=== PATIENT | male | born 1965 | race Caucasian/White ===

== ENCOUNTER 2016-06-19 18:52 | Emergency (ER) | payer SELFPAY ==
[~2016-06-19] VITALS: Ht 190.5 cm; Wt 124.5 kg
[~2016-06-19 18:52] MED LIST: ERYTOIN10 RIGHT EYE
[2016-06-19 19:01] VITALS: BP 155/104; PULSE 70; RESP 18; TEMP 98.8; O2SAT 97
[2016-06-19] MEDS ORDERED: KETOROLAC TROMETHAMINE 60 MG/2 ML (IM) VIAL IM ONE (20:00)
[2016-06-19] MEDS ORDERED: ACETAMINOPHEN/HYDROcodone 325 MG/5 MG TAB PO ONE (20:00)
--- NOTE | 2016-06-19 20:06 | PD ---
HPI Chief Complaint: Musculoskeletal Complaint Time Seen by Provider: 20:00 Travel History International Travel<30 days: No Contact w/Intl Traveler<30days: No Traveled to known affect area: No History of Present Illness HPI 51-year-old right-hand dominant male presents to the ED for evaluation of 8/10 right shoulder pain. Onset 3 days ago after he fell approximately 3 feet into a friend's empty pool. He states that he iced the shoulder immediately after the injury. Today he complains of anterior shoulder pain, worse with range of motion. He states that he is unable to raise the arm above shoulder level. He denies numbness, tingling, weakness of the extremity. He denies previous injury to the same shoulder, chronic health problems. Takes no daily medications , NKDA. PFSH Past Medical History Medical History: Denies Significant Hx Diminished Hearing: No Immunizations Current: Yes Tetanus Vaccination: < 5 Years Influenza Vaccination: No ?: Not Social History Alcohol Use: Yes (DAILY) Tobacco Use: No Substance Use: No Allergies-Medications (Allergen,Severity, Reaction): Coded Allergies: No Known Allergies (Verified , 02/16/16) Reported Meds & Prescriptions Reported Meds & Active Scripts Active Ibuprofen 800 Mg Tab 800 Mg PO Q8H Review of Systems Except as stated in HPI: all other systems reviewed are Neg Physical Exam Narrative GENERAL: Well-nourished, well-developed white male in no acute distress. SKIN: Focused skin assessment warm/dry. Multiple tattoos. HEAD: Normocephalic. EYES: No scleral icterus. No injection or drainage. NECK: Supple, trachea midline. No JVD or lymphadenopathy. CARDIOVASCULAR: Regular rate and rhythm without murmurs, gallops, or rubs. RESPIRATORY: Breath sounds equal bilaterally. No accessory muscle use. GASTROINTESTINAL: Abdomen soft, non-tender, nondistended. MUSCULOSKELETAL: No cyanosis, or edema. FOCUSED RIGHT UPPER EXTREMITY EXAM: 2+ radial pulse. Tender to palpation of the acromioclavicular joint and the anterior aspect of the shoulder. No tenderness to palpation of the posterior aspect of the shoulder, clavicle, length of the humerus. Pain elicited with resisted abduction. Patient is unable to abduct the arm beyond 90. Test negative. Patient maintains full, active, painless ROM of the elbow and wrist. Strong claims adjuster crop strength. Sensation intact to light touch distally, cap refill less than 2 seconds. BACK: Nontender without obvious deformity. No CVA tenderness. Data Data Last Documented VS Vital Signs Date Time Temp Pulse Resp B/P Pulse Ox O2 Delivery O2 Flow Rate FiO2 06/19/16 19:01 98.8 70 18 155/104 97 Orders Shoulder, Complete (>2vws) (06/19/16 19:58) Ice/Cold Pack (06/19/16 19:58) Ketorolac Inj (Toradol Inj) (06/19/16 20:00) Acetamin-Hydrocod 325-5 Mg ([place] 5-325 (06/19/16 20:00) MDM Medical Decision Making Medical Screen Exam Complete: Yes Emergency Medical Condition: Yes Differential Diagnosis Acromioclavicular separation versus contusion versus rotator cuff injury versus fracture versus other Narrative Course 51-year-old right-hand dominant male presents to the ED for evaluation of 8/10 right shoulder pain. Onset 3 days ago after he fell approximately 3 feet into a friend's empty pool. Today he complains of anterior shoulder pain and inability to raise the arm above shoulder level. He denies numbness, tingling, weakness of the extremity. The patient is a declan by [employer]. Vitals reviewed. Physical exam reveals a pleasant white male in no acute distress. Focused right upper extremity exam reveals a 2+ radial pulse. Tender to palpation of the acromioclavicular joint and the anterior aspect of the shoulder. Pain elicited with resisted abduction. Patient is unable to abduct the arm beyond 90 . Drop test negative. Patient maintains full, active, painless ROM of the elbow and wrist. Strong claims adjuster crop strength. Neurovascularly intact. Patient was administered an ice pack, IM Toradol and 5 mg Lortab by mouth. X-rays normal for patient's age per radiology read. At this right shoulder injury. I suspect there may be a rotator cuff injury, difficult to evaluate in the acute phase. Patient was prescribed 800 mg ibuprofen 3 times a day 5-7 days. He is instructed to rest, ice, elevate the extremity, follow up with the orthopedist if symptoms continue. He indicated understanding of the instructions. He is agreeable to the care plan. He is stable and discharged home. Diagnosis Primary Impression: Right shoulder injury Qualified Code: S49.91XA - Right shoulder injury, initial encounter Referrals: Orthopedist Patient Instructions: Early Postoperative or Post Injury Shoulder Exercises (ED ), Exercises for Shoulder Abduction and Adduction (ED), General Instructions, Shoulder Pain (ED) Additional Instructions: Rest, ice, elevate the extremity. Apply ice no longer than 10-15 minutes per hour a few times a day. 800 mg ibuprofen up to 3 times a day x 5-7 days as prescribed to reduce inflammation. Return to normal, gentle activity as tolerated. Follow-up with the orthopedist for further evaluation. Return to the ED for any urgent or emergent medical condition. Med/Other Pt SpecificInfo: Prescription(s) given Scripts Ibuprofen 800 Mg [id number] Mg PO Q8H #20 TAB Ref 0 Prov:Wesley Martini MD 06/19/16 Disposition: 01 DISCHARGE HOME Condition: Stable Leigh Chaney Jun 19, 2016 20:06
--- NOTE | 2016-06-19 21:57 | RADHPO ---
EXAM DATE/TIME: 06/19/2016 20:56 [facility] COMPARISON: No previous studies available for comparison. INDICATIONS : Right shoulder pain after fall. MEDICAL HISTORY : None. SURGICAL HISTORY : None. ENCOUNTER: Initial ACUITY: 1 day PAIN SCORE: 8/10 LOCATION: Right proximal shoulder FINDINGS: Multiple view examination of the right shoulder demonstrates no evidence of fracture or dislocation. The glenohumeral and acromioclavicular joints are maintained. There is normal range of motion betwe en internal and external rotation. Bony mineralization is normal. CONCLUSION: Normal examination for a patient of this age. Federico Carrizales MD on June 19, 2016 at 21:55 Board Certified Radiologist. This report was verified electronically.
[2016-06-19] MEDS ORDERED: IBUP800T23 PO (22:15)
== END 2016-06-19 22:24 | disposition home or self-care (01) ==
LOC: PHEFT 18:52
DX: S49.91XA Unspecified injury of right shoulder and upper arm, initial encounter (principal); W17.3XXA Fall into empty swimming pool, initial encounter; Y92.008 Other place in unspecified non-institutional (private) residence as the place of occurrence of the external cause
CPT/HCPCS: 73030; 96372; 99283; J1885